=== PATIENT | female | born 2000 | race Caucasian/White ===

== ENCOUNTER 2022-08-09 19:45 | Emergency (ER) | payer OTHER, SELFPAY ==
[2022-08-09 19:48] VITALS: BP 123/67; PULSE 67; RESP 14; TEMP 36.7; O2SAT 100
[2022-08-09 20:03] VITALS: BP 123/67; PULSE 67; RESP 14; TEMP 36.7; O2SAT 100
--- NOTE | 2022-08-09 20:04 | ED.FEMALEGU ---
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 PATIENT IS CURRENTLY TAKING SEPTRA FOR URINARY TRACT INFECTION AND STATES SHE HAS HAD HEAVY PERIODS FOR THE LAST 3 DAYS. 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 PATIENT DENIES ANY ABDOMINAL PAIN NO FEVER. Related Data Home Medications Medication Instructions Recorded Confirmed hydroxyzine HCl 25 mg tablet 25 mg PO DAILY 08/09/22 08/09/22 Allergies Allergy/AdvReac Type Severity Reaction Status Date / Time No Known Allergies Allergy Verified 08/09/22 19:58 Review of Systems Review of Systems: CONSTITUTIONAL: DENIES FEVER, CHILLS, OR SWEATS. EYES: DENIES VISUAL CHANGES, REDNESS, OR DISCHARGE. ENT: DENIES RHINORRHEA, CONGESTION, SORE THROAT, OR OTALGIA. CARDIOVASCULAR: DENIES CHEST PAIN, PALPITATIONS, OR EDEMA. RESPIRATORY: DENIES COUGH OR DYSPNEA. GASTROINTESTINAL: DENIES ABDOMINAL PAIN, NAUSEA, VOMITING, OR DIARRHEA. GENITOURINARY: DENIES DYSURIA OR HEMATURIA. SKIN: DENIES RASH OR ITCHING. MUSCULOSKELETAL: DENIES BACK PAIN, JOINT PAIN, OR MYALGIA. NEUROLOGIC: DENIES HEADACHE, NUMBNESS, OR WEAKNESS. PSYCHIATRIC: DENIES ANXIETY OR DEPRESSION. PMFSH Comments AT TIME OF SIGNATURE, AGREE WITH NURSING PAST MEDICAL, SURGICAL, SOCIAL AND FAMILY HISTORY. THERE IS NO RELEVANT FAMILY HISTORY PERTINENT TO THE PRESENTING COMPLAINT Exam Narrative: GENERAL: WELL-APPEARING, WELL-NOURISHED, AND IN NO ACUTE DISTRESS. HEAD: NORMOCEPHALIC, ATRAUMATIC. EYES: PERRLA AND EOMI. ENT: NARES CLEAR, NO RHINORRHEA OR EPISTAXIS. MUCOUS MEMBRANES MOIST. NECK: SUPPLE. CHEST: CLEAR TO AUSCULTATION. NO RESPIRATORY DISTRESS. HEART: REGULAR RATE AND RHYTHM. NO MURMUR HEARD. NORMAL PERIPHERAL PULSES. ABDOMEN: SOFT, NONTENDER, NONDISTENDED, NORMAL ACTIVE BOWEL SOUNDS. EXTREMITIES: NORMAL RANGE OF MOTION. NO EDEMA. SKIN: WARM, DRY, NO RASH. NEURO: NO FOCAL DEFICITS. ALERT AND ORIENTED X3. SIDNEY COMA SCALE EYE OPENING: SPONTANEOUS 4 SIDNEY COMA SCALE MOTOR: OBEYS COMMANDS 6 SIDNEY COMA SCALE VERBAL: ORIENTED 5 SIDNEY COMA SCALE TOTAL 15 Course Course Level of Care: Express Care Visit Vital Signs Vital signs: Vital Signs Temperature 36.7 C 08/09/22 19:48 Pulse Rate 67 08/09/22 19:48 Respiratory Rate 14 08/09/22 19:48 Blood Pressure 123/67 08/09/22 19:48 Pulse Oximetry 100 08/09/22 19:48 Oxygen Delivery Room Air 08/09/22 19:48 Temperature 36.7 C 08/09/22 20:03 Pulse Rate 67 08/09/22 20:03 Respiratory Rate 14 08/09/22 20:03 Blood Pressure 123/67 08/09/22 20:03 Pulse Oximetry 100 08/09/22 20:03 Oxygen Delivery Room Air 08/09/22 20:03 DISCUSSED WITH PATIENT NEED TO GO TO EMERGENCY ROOM FOR FURTHER EVALUATION AND TREATMENT OF ABNORMAL BLEEDING Transfer Transfer rationale: HIGHER LEVEL CARE FOR LAB WORK AND FURTHER EVALUATION TREAT Accepting physician: DR YEBOAH Transfer comments: PATIENT PREFERS TO GO BY PRIVATE VEHICLE MDM - Female Genitourinary Differential Diagnosis Differential diagnosis: Likely urinary tract infection, bacterial vaginosis and other (DIZZINESS) Discharge Plan Discharge Clinical Impression: Heavy menstrual bleeding, Abnormal vaginal bleeding Patient Disposition: Acute Care Hospital Condition: Stable Instructions: Abnormal (Dysfunctional) Uterine Bleeding (ED) Additional Instructions: 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
== END 2022-08-09 20:15 | disposition short-term general hospital (02) ==
PROVIDERS: Emergency Provider Nurse Practitioner Family
DX: N92.0 Excessive and frequent menstruation with regular cycle (principal); N93.9 Abnormal uterine and vaginal bleeding, unspecified; F41.9 Anxiety disorder, unspecified
CPT/HCPCS: 99212; G0463